=== PATIENT | female | born 1975 | race Hispanic/Latino ===

== ENCOUNTER 2017-01-26 21:39 | Inpatient (IN) | payer OTHER, MEDICAID ==
--- NOTE | 2017-01-26 22:32 | C.PDOC ---
History Of Present Illness Pt developed a wound on her llq abdomen. was seen at [facility] about 2 days ago, but signed ama because she had to take care of her daugther. Was placed bactrim and keflex. Now wound worsened. 2x 25 cm open wound some purulent drainage and streaking noticed Time Seen by Provider: 01/26/17 22:31 Chief Complaint (Nursing): Abnormal Skin Integrity History Per: Patient History/Exam Limitations: no limitations Onset/Duration Of Symptoms: Days (3) Current Symptoms Are (Timing): Worse Location Of Injury: Left: Abdomen Quality Of Symptoms: Painful, Swollen, Draining Severity: Severe Pain Scale Rating Of: 6 Recent travel outside of the [place]: No Additional History Per: Patient Past Medical History Reviewed: Historical Data, Nursing Documentation, Vital Signs Vital Signs: Last Vital Signs Temp 98 F 01/26/17 22:05 Pulse 86 01/26/17 22:05 Resp 20 01/26/17 22:05 BP 153/92 H 01/26/17 22:05 Pulse Ox 96 01/26/17 22:32 - Medical History PMH: Anxiety, Asthma, Bipolar Disorder, Diabetes, HTN Denies: Chronic Kidney Disease - [facility] Procedures IMMOBILIZ/WOUND ATTN NEC (05/30/13) INJECT/INFUSE NEC (05/30/13) Family History: States: No Known Family Hx - Social History Hx Tobacco Use: Yes Hx Alcohol Use: No Hx Substance Use: No - Immunization History Hx Tetanus Toxoid Vaccination: No Hx Influenza Vaccination: No Hx Pneumococcal Vaccination: No Review Of Systems Constitutional: Negative for: Fever, Chills Cardiovascular: Negative for: Chest Pain Respiratory: Negative for: Shortness of Breath Gastrointestinal: Positive for: Abdominal Pain. Negative for: Nausea, Vomiting Musculoskeletal: Negative for: Back Pain Skin: Positive for: Rash, Lesions Neurological: Negative for: Weakness Psych: Negative for: Anxiety Physical Exam - Physical Exam Appears: Non-toxic Skin: Warm, Other (2x2.4 cm open wound, with some purulent material visible, tender, some induration) Chest: Symmetrical Cardiovascular: Rhythm Regular Respiratory: No Rales, No Rhonchi, No Wheezing Gastrointestinal/Abdominal: Soft, Tenderness (left lower quadrant, abscess) Back: Normal Inspection Neurological/Psych: Oriented x3, Normal Speech, Normal Cognition Gait: Steady ED Course And Treatment O2 Sat by Pulse Oximetry: 96 Pulse Ox Interpretation: Normal Progress Note: blood work, iv abx, nss Disposition Discussed With Dr.: Emmanuelle Gibson Comment: accepted the pt onhis service and took over the care at 11:15 PM Doctor Will See Patient In The: Hospital Counseled Patient/Family Regarding: Studies Performed, Diagnosis - Disposition Disposition: HOSPITALIZED Disposition Time: 22:32 Condition: FAIR - Clinical Impression Clinical Impression: Skin lesion, Skin ulcer, Abscess, Cellulitis Decision To Admit - Pt Status Changed To: Hospital Disposition Of: Inpatient - Admit Certification Admit to Inpatient:: After my assessment, the patient will require hospitalization for at least two midnights. This is because of the severity of symptoms shown, intensity of services needed, and/or the medical risk in this patient being treated as an outpatient. - InPatient: Physician Admission Certification: I certify that this patient requires 2 or more midnights of care for the following reason:: After my assessment, the patient will require hospitalization for at least two midnights. This is because of the severity of symptoms shown, intensity of services needed, and/or the medical risk in this patient being treated as an outpatient. - . Bed Request Type: Regular Admitting Physician: Emmanuelle Gibson Patient Diagnosis: Skin lesion, Skin ulcer, Abscess, Cellulitis
[2017-01-26] MEDS ORDERED: Sodium Chloride 0.9% 1,000 ML IV ONE (22:39)
[2017-01-26] MEDS ORDERED: Piperacillin/Tazobact 3.375 GM in Sodium Chloride 100 ML IVPB STA (22:39)
[2017-01-26 22:55] LABS: VENOUS BLOOD GAS BASE EXCESS -1.1 mmol/L (0.0-2.0); VENOUS BLOOD GAS PCO2 38 mmHg (40-60)
[2017-01-26] MEDS ORDERED: Piperacillin/Tazobact 3.375 gm 100 ML IVPB ONE (23:01)
[2017-01-26] MEDS ORDERED: Sodium Chloride 0.9% 2,000 ML IV ONE (23:04)
[2017-01-26 23:08] LABS: BASO # 0.1 K/uL (0.0-0.2); BASO % 0.9 % (0.0-2.0); EOS # 0.3 K/uL (0.0-0.7); HEMATOCRIT 37.7 % (34.0-47.0); LYMPH # 2.5 K/uL (1.0-4.3); LYMPH % 30.5 % (20.0-40.0); MEAN CELL VOLUME 89.6 fL (81.0-99.0); MEAN CORPUSCULAR HEMOGLOBIN 29.8 pg (27.0-31.0); MEAN CORPUSCULAR HGB CONC 33.3 g/dL (33.0-37.0); MONO # 0.6 K/uL (0.0-0.8); MONO % 6.9 % (0.0-10.0); WHITE BLOOD COUNT 8.2 K/uL (4.8-10.8)
[2017-01-26 23:19] LABS: CHLORIDE 101 mmol/L (98-107); POTASSIUM 3.3 mmol/L (3.6-5.2); SODIUM 141 mmol/L (132-148)
[2017-01-26 23:21] LABS: AST/SGOT 17 U/L (14-36); BILIRUBIN,TOTAL 0.3 mg/dL (0.2-1.3); CARBON DIOXIDE 24 mmol/L (22-30); GFR AFRICAN-AMERICAN > 60
[2017-01-26 23:22] LABS: ALB/GLOB RATIO 1.3 (1.0-2.1); ALKALINE PHOSPHATASE 78 U/L (38-126); ALT/SGPT 24 U/L (9-52); BLOOD UREA NITROGEN 11 mg/dL (7-17); GLUCOSE,RANDOM 160 mg/dL (65-105); TOTAL PROTEIN 6.3 g/dL (6.3-8.3)
[2017-01-26 23:23] LABS: CALCIUM 8.3 mg/dl (8.6-10.4)
[2017-01-26] MEDS ORDERED: Potassium Chloride 10 mEq ER Tab PO STA (23:28)
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
[2017-01-26] MEDS ORDERED: Oxycodone/Acetaminophen 5/325 mg Tab PO PRN (23:30)
[2017-01-26] MEDS ORDERED: Piperacill/Tazo 3.375gm in Dex 50 ML IVPB SCH (23:30)
[2017-01-27] MEDS ORDERED: Potassium Chloride 10 mEq ER Tab PO ONE (00:07)
[2017-01-27] MEDS ORDERED: Oxycodone/Acetaminophen 5/325 mg Tab ONE (00:08)
[2017-01-27] MEDS: Vancomycin 1 gm/NS 200 ml 200 ML IVPB SCH ×2 (00:40→13:18)
--- NOTE | 2017-01-27 01:31 | CP.PCM.CON ---
<Chidi Hobbs - Last Filed: 01/27/17 01:53> History of Present Illness - History of Present Illness History of Present Illness: Gen Surg Consult: Dr. Snell 41F w/ PMHx of Anxiety, bipolar disorder, DM, HTN presented to the ED on 01/26 for abdominal abscess. Patient had originally gone to [facility] with same complaint but signed out AMA because she had to take care of her grandson. Patient was prescribed Bactrim and Keflex but she reports the wound character and size did not improve and the pain and erythema worsened and she decided to come to hospital. According to patient about 3 weeks ago her grandson developed an abscess near his buttocks, he was treated and patients states she was told her grandson's abscess was positive for MRSA. She states she did not take proper contact precautions when cleaning her grandchild at the hospital. About 2 weeks later she developed a small bump on her abdomen which she took care of at home by applying warm compresses and draining it. However, 4 days ago she developed yet another small red bump which she decided to drain and the wound proceeded to worsen and become erythematous and painful as the days went by. Currently the wound is draining scant purulent fluid. No abdominal crepitus noted. Patient reports subjective fever/chills, cough. Denies n/v. Reports abdominal pain along abdominal wound. PMHx: as stated above Allergies: NKDA Review of Systems - Review of Systems Review of Systems: 12 pt ROS carried out, unremarkable; except as stated in HPI Past Patient History - Infectious Disease Hx of Infectious Diseases: None - Past Social History Smoking Status: Light Smoker < 10 Cigarettes Daily - CARDIAC Hx Hypertension: Yes - PULMONARY Hx Asthma: Yes - NEUROLOGICAL Hx Neurological Disorder: Yes (brain aneurysm) - HEENT Hx HEENT Problems: No - RENAL Hx Chronic Kidney Disease: No - ENDOCRINE/METABOLIC Hx Endocrine Disorders: No - HEMATOLOGICAL/ONCOLOGICAL Hx Blood Disorders: No - INTEGUMENTARY Hx Dermatological Problems: No - MUSCULOSKELETAL/RHEUMATOLOGICAL Hx Musculoskeletal Disorders: Yes Hx Back Pain: Yes - GASTROINTESTINAL Hx Gastrointestinal Disorders: No - GENITOURINARY/GYNECOLOGICAL Hx Genitourinary Disorders: No - PSYCHIATRIC Hx Anxiety: Yes Hx Bipolar Disorder: Yes Hx Substance Use: No - SURGICAL HISTORY Hx Surgeries: Yes Hx Section: Yes (x1) Hx Eye Surgery: Yes (chipped bones to eye) Other/Comment: laser surgery for ovarian cysts, ectopic - ANESTHESIA Hx Anesthesia: No Hx Anesthesia Reactions: No Meds Allergies/Adverse Reactions: Allergies Allergy/AdvReac Type Severity Reaction Status Date / Time No Known Allergies Allergy Verified 08/25/14 06:43 - Medications Medications: Current Medications Piperacillin Sod/Tazobactam Sod (Zosyn 3.375 Gm Iv Premix) 50 mls @ 100 mls/hr IVPB Q6H [facility] Vancomycin/Sodium Chloride (Vancocin) 200 mls @ 133 mls/hr IVPB Q12H [facility] Stop: 02/01/17 00:01 Sodium Chloride (Sodium Chloride 0.9%) 2,000 mls @ 1,000 mls/hr IV .Q2H [facility] Stop: 01/27/17 04:29 Oxycodone/Acetaminophen (Percocet 5/325 Mg Tab) 1 tab PO Q6H PRN PRN Reason: Pain, moderate (4-7) Stop: 01/29/17 23:31 Last Admin: 01/27/17 00:10 Dose: 1 tab Pantoprazole Sodium (Protonix Ec Tab) 40 mg PO DAILY [facility] Physical Exam - Constitutional Appears: Non-toxic, No Acute Distress - Head Exam Head Exam: NORMOCEPHALIC - Eye Exam Eye Exam: Normal appearance - ENT Exam ENT Exam: Mucous Membranes Moist - Respiratory Exam Respiratory Exam: NORMAL BREATHING PATTERN. absent: Accessory Muscle Use - Cardiovascular Exam Cardiovascular Exam: +S1, +S2 - GI/Abdominal Exam GI & Abdominal Exam: Soft, Tenderness. absent: Firm, Guarding, Rebound, Rigid Additional comments: Abdominal wound measuring approximately 2x3 cm w/ surrounding erythema Tender to light palpation - Extremities Exam Extremities exam: Negative for: calf tenderness - Neurological Exam Neurological exam: Alert, Oriented x3 - Psychiatric Exam Psychiatric exam: Normal Mood - Skin Skin Exam: Erythema, Warm Results - Vital Signs Recent Vital Signs: Last Vital Signs Temp 97.6 F 01/27/17 00:02 Pulse 84 01/27/17 00:02 Resp 20 01/27/17 00:02 BP 153/92 H 01/27/17 00:02 Pulse Ox 98 01/27/17 00:02 - Labs Result Diagrams: 01/26/17 23:05 01/26/17 23:05 Labs: Laboratory Results - last 24 hr 01/26/17 23:05 WBC 8.2 D RBC 4.21 Hgb 12.5 Hct 37.7 MCV 89.6 MCH 29.8 MCHC 33.3 RDW 14.0 Plt Count 266 MPV 10.0 Neut % (Auto) 57.7 Lymph % (Auto) 30.5 [place] % (Auto) 6.9 Eos % (Auto) 4.0 Baso % (Auto) 0.9 Neut # 4.8 Lymph # 2.5 [place] # 0.6 Eos # 0.3 Baso # 0.1 Sodium 141 Potassium 3.3 L Chloride 101 Carbon Dioxide 24 Anion Gap 19 BUN 11 Creatinine 0.9 Est GFR ( Amer) > 60 Est GFR (Non-Af Amer) > 60 Random Glucose 160 H Calcium 8.3 L Total Bilirubin 0.3 AST 17 ALT 24 Alkaline Phosphatase 78 Total Protein 6.3 Albumin 3.6 Globulin 2.7 Albumin/Globulin Ratio 1.3 Serum Ketones Negative Assessment & Plan - Assessment and Plan (Free Text) Assessment: 41F w/ abdominal abscess -NPO -IVF -Abx -Analgesics -F/u wound cultures -F/u CT scan -I&D -DVT/GI ppx -Further recs per Dr. Snell <Winston Snell - Last Filed: 01/29/17 11:13> Meds - Medications Medications: Current Medications Guaifenesin/Codeine Phosphate (Guaifenesin/Codeine) 10 ml PO Q4 PRN PRN Reason: Cough and congestion Last Admin: 01/29/17 06:44 Dose: 10 ml Piperacillin Sod/Tazobactam Sod (Zosyn 3.375 Gm Iv Premix) 50 mls @ 100 mls/hr IVPB Q6H [facility] Last Admin: 01/29/17 05:57 Dose: 100 mls/hr Vancomycin/Sodium Chloride (Vancocin) 200 mls @ 133 mls/hr IVPB Q12H [facility] Stop: 02/01/17 00:01 Last Admin: 01/29/17 00:42 Dose: 133 mls/hr Sodium Chloride (Sodium Chloride 0.9%) 1,000 mls @ 125 mls/hr IV .Q8H [facility] Last Admin: 01/29/17 11:09 Dose: Not Given Oxycodone HCl (Oxycontin Extended Release Tab) 30 mg PO Q12 [facility] Stop: 02/01/17 10:01 Last Admin: 01/29/17 11:04 Dose: 30 mg Pantoprazole Sodium (Protonix Ec Tab) 40 mg PO DAILY [facility] Last Admin: 01/29/17 11:04 Dose: 40 mg Results - Vital Signs Recent Vital Signs: Last Vital Signs Temp 98.3 F 01/29/17 08:00 Pulse 74 01/29/17 08:00 Resp 20 01/29/17 08:00 BP 154/91 H 01/29/17 08:00 Pulse Ox 95 01/29/17 08:00 - Labs Result Diagrams: 01/28/17 07:30 01/28/17 07:30 Attending/Attestation - Attestation I have personally seen and examined this patient.: Yes I have fully participated in the care of the patient.: Yes I have reviewed all pertinent clinical information: Yes Notes (Text): 01/29/17 11:12 Pt was seen and examined at bedside on 01/27/17 Agree with above note and assessment. Pt with Abdominal wall abscess with Necrosis of wound Possible MRSA Pt would need Incision and Drainage of abscess and Debridement. Consent Plan d.w pt in detail Risk and benefit explained in detail.
[2017-01-27] MEDS: Sodium Chloride 0.9% 1,000 ML IV SCH ×3 (02:27→21:22)
[2017-01-27] MEDS ORDERED: Sodium Chloride 0.9% 2,000 ML IV ONE (02:30)
[2017-01-27] MEDS: Piperacill/Tazo 3.375gm in Dex 50 ML IVPB SCH ×4 (05:26→23:25)
[2017-01-27 07:33] LABS: RBC URINE 1 /hpf (0-3); URINE BACTERIA RARE (<OCC); URINE BILIRUBIN NEGATIVE (NEGATIVE); URINE BLOOD NEGATIVE (NEGATIVE); URINE COLOR Yellow (YELLOW); URINE GLUCOSE (UA) NORMAL (Normal); URINE KETONE NEGATIVE (NEGATIVE); URINE LEUKOCYTE ESTERASE NEG Leu/uL (Negative); URINE PROTEIN NEGATIVE (NEGATIVE); WBC URINE 3 /hpf (0-5)
[2017-01-27] MEDS: Pantoprazole 40 mg EC Tab PO SCH (09:34)
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
[2017-01-27] MEDS ORDERED: Potassium Chloride 20 mEq 100 ML IVPB ONE (11:45)
[2017-01-27] MEDS ORDERED: Iodixanol 320 MG/ML 100 ML BOTTLE IV ONE (11:58)
--- NOTE | 2017-01-27 13:17 | CT ---
PROCEDURE: CT Abdomen and Pelvis with contrast HISTORY: Abdominal abscess COMPARISON: None. TECHNIQUE: Axial and reformatted coronal and sagittal CT of the abdomen and pelvis were obtained after IV contrast administration. No oral contrast was given. This CT exam was performed using one or more of the following dose reduction techniques: Automated exposure control, adjustment of the mA and/or kV according to patient size, and/or use of iterative reconstruction technique. Contrast dose: 100 mL of Visipaque 320. Radiation dose: Total exam DLP = 820.18 mGy-cm. FINDINGS: LOWER THORAX: Bibasilar atelectasis are seen. No evidence of pleural effusion. The heart is normal in size. LIVER: Unremarkable. No gross lesion or ductal dilatation. GALLBLADDER AND BILE DUCTS: The gallbladder is contracted. The biliary tree is not dilated. PANCREAS: Unremarkable. No gross lesion or ductal dilatation. SPLEEN: Unremarkable. ADRENALS: Unremarkable. No mass. KIDNEYS AND URETERS: Unremarkable. No hydronephrosis. No solid mass. There is low-attenuation cystic lesion at the upper pole of the right kidney measures 2.8 centimeter. VASCULATURE: Unremarkable. No aortic aneurysm. BOWEL: Unremarkable. No obstruction. No gross mural thickening. APPENDIX: Normal appendix. PERITONEUM: Unremarkable. No free fluid. No free air. LYMPH NODES: Unremarkable. No enlarged lymph nodes. BLADDER: Unremarkable. REPRODUCTIVE: The uterus is heterogeneous mildly enlarged. The adnexa are prominent in size especially on the left. BONES: No acute fracture. OTHER FINDINGS: There is a skin thickening and mild subcutaneous stranding seen at the left anterior abdominal wall at the level of the umbilicus. No evidence of discrete fluid collection. IMPRESSION: No evidence of abscess formation in the abdomen and pelvis. Skin thickening and subcutaneous stranding seen at the left anterior abdominal wall at the level of the umbilicus suggestive of cellulitis. No evidence of abscess formation. Mildly enlarged heterogeneous uterus and adnexa. If clinically warranted further assessment by ultrasound may be obtained.
[2017-01-27] MEDS ORDERED: Lidocaine 1%/Epinephrine 1:100000 30 ml vial IJ STA (13:59)
[2017-01-27] MEDS ORDERED: Potassium Chloride 10 mEq ER Tab PO STA (19:04)
[2017-01-27] MEDS: guaiFENesin-Codeine 100-10mg/5ml Syrup (10ml) UD PO PRN (21:20)
[2017-01-28] MEDS: Sodium Chloride 0.9% 1,000 ML IV SCH ×4 (02:00→22:43)
[2017-01-28] MEDS: Piperacill/Tazo 3.375gm in Dex 50 ML IVPB SCH ×3 (04:44→17:39)
[2017-01-28 07:48] LABS: BASO # 0.1 K/uL (0.0-0.2); EOS # 0.2 K/uL (0.0-0.7); EOS % 2.9 % (0.0-4.0); HEMATOCRIT 37.5 % (34.0-47.0); LYMPH # 2.2 K/uL (1.0-4.3); LYMPH % 27.7 % (20.0-40.0); MEAN CELL VOLUME 91.1 fL (81.0-99.0); MEAN CORPUSCULAR HEMOGLOBIN 29.8 pg (27.0-31.0); MEAN CORPUSCULAR HGB CONC 32.7 g/dL (33.0-37.0); MEAN PLATELET VOLUME 9.6 fL (7.2-11.7); MONO # 0.6 K/uL (0.0-0.8); MONO % 7.2 % (0.0-10.0); NRBC % 0.1 % (0.0-2.0); RED CELL DISTRIBUTION WIDTH 13.7 % (11.5-14.5); WHITE BLOOD COUNT 7.9 K/uL (4.8-10.8)
[2017-01-28 07:57] LABS: CHLORIDE 101 mmol/L (98-107); POTASSIUM 4.3 mmol/L (3.6-5.2); SODIUM 136 mmol/L (132-148)
[2017-01-28 08:00] LABS: BLOOD UREA NITROGEN 5 mg/dL (7-17); CARBON DIOXIDE 26 mmol/L (22-30); GFR AFRICAN-AMERICAN > 60; GLUCOSE,RANDOM 101 mg/dL (65-105)
[2017-01-28] MEDS ORDERED: Pneumococcal 23-Valent Vaccine IM ONE (10:00)
[2017-01-28] MEDS: Pantoprazole 40 mg EC Tab PO SCH (10:38)
[2017-01-28] MEDS ORDERED: HYDROmorphone 0.5 mg/0.5 ml ISec IVP PRN (11:16)
[2017-01-28] MEDS ORDERED: Albuterol HFA 90 mcg/actuation (8 g) ONE (11:21)
[2017-01-28] MEDS ORDERED: Propofol 10 mg/ml Inj (20 ML) ONE (11:29)
[2017-01-28] MEDS ORDERED: Midazolam 2 MG/2 ML VIAL ONE (11:29)
[2017-01-28] MEDS ORDERED: Lidocaine Hydrochloride 5 ML INJ ONE (11:32)
[2017-01-28] MEDS ORDERED: Bupivacaine/Epi 0.25%-1:200,000 10 ml PF inj IJ ONE (11:33)
[2017-01-28] MEDS ORDERED: Lidocaine 1% Inj (20ml) ONE (11:34)
[2017-01-28] MEDS: Vancomycin 1 gm/NS 200 ml 200 ML IVPB SCH ×2 (11:40)
--- NOTE | 2017-01-28 12:02 | PCM.SURG1 ---
Surgeon's Initial Post Op Note - Surgeon's Notes Surgeon: Dr. Snell Yarn Tester: Dr. Hobbs PGY-1 Type of Anesthesia: IV Sedation Pre-Operative Diagnosis: abdominal abscess Operative Findings: see operative report Post-Operative Diagnosis: see operative report Operation Performed: debridement of abdominal abscess tissue. incision and drainage of abdominal abscess. placement of wound vac Specimen/Specimens Removed: debrided abscess wall tissue Estimated Blood Loss: EBL {In ML}: 10 Blood Products Given: N/A Drains Used: No Drains Post-Op Condition: Good Date of Surgery/Procedure: 01/28/17 Time of Surgery/Procedure: 11:00
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
[2017-01-28 17:22] VITALS: RESP 20
[2017-01-28] MEDS: guaiFENesin-Codeine 100-10mg/5ml Syrup (10ml) UD PO PRN (19:00)
[2017-01-29] MEDS: Piperacill/Tazo 3.375gm in Dex 50 ML IVPB SCH ×4 (00:04→18:00)
[2017-01-29] MEDS: Vancomycin 1 gm/NS 200 ml 200 ML IVPB SCH ×2 (00:42→12:26)
[2017-01-29] MEDS: Sodium Chloride 0.9% 1,000 ML IV SCH ×3 (02:11→17:45)
[2017-01-29] MEDS: guaiFENesin-Codeine 100-10mg/5ml Syrup (10ml) UD PO PRN (06:44)
--- NOTE | 2017-01-29 08:39 | CP.PCM.PN ---
Subjective - Date & Time of Evaluation Date of Evaluation: 01/29/17 Time of Evaluation: 07:10 - Subjective Subjective: Gen surgery: Dr. Snell Pt S&E. Scant output in wound vac. Reports pain being well managed w/ pain meds. Tolerating diet. Objective - Vital Signs/Intake and Output Vital Signs (last 24 hours): Temp Pulse Resp BP Pulse Ox 97.9 F 85 20 146/89 97 01/29/17 00:00 01/29/17 00:00 01/29/17 00:00 01/29/17 00:00 01/29/17 00:00 Intake and Output: 01/29/17 01/29/17 06:59 18:59 Intake Total 1240 Output Total 0 Balance 1240 - Medications Medications: Current Medications Guaifenesin/Codeine Phosphate (Guaifenesin/Codeine) 10 ml PO Q4 PRN PRN Reason: Cough and congestion Last Admin: 01/29/17 06:44 Dose: 10 ml Piperacillin Sod/Tazobactam Sod (Zosyn 3.375 Gm Iv Premix) 50 mls @ 100 mls/hr IVPB Q6H [facility] Last Admin: 01/29/17 05:57 Dose: 100 mls/hr Vancomycin/Sodium Chloride (Vancocin) 200 mls @ 133 mls/hr IVPB Q12H [facility] Stop: 02/01/17 00:01 Last Admin: 01/29/17 00:42 Dose: 133 mls/hr Sodium Chloride (Sodium Chloride 0.9%) 1,000 mls @ 125 mls/hr IV .Q8H [facility] Last Admin: 01/29/17 02:11 Dose: Not Given Morphine Sulfate (Morphine) 2 mg IVP Q4 PRN PRN Reason: Pain, severe (8-10) Last Admin: 01/29/17 06:44 Dose: 2 mg Pantoprazole Sodium (Protonix Ec Tab) 40 mg PO DAILY [facility] Last Admin: 01/28/17 10:38 Dose: Not Given - Labs Labs: 01/28/17 07:30 01/28/17 07:30 PT 11.5 SECONDS (9.7-12.2) 01/27/17 08:10 INR 1.0 01/27/17 08:10 APTT 33 SECONDS (21-34) 01/27/17 08:10 - Constitutional Appears: No Acute Distress - Eye Exam Eye Exam: Normal appearance - ENT Exam ENT Exam: Mucous Membranes Moist - Respiratory Exam Additional comments: +cough - Cardiovascular Exam Cardiovascular Exam: +S1, +S2 - GI/Abdominal Exam GI & Abdominal Exam: Soft, Tenderness Additional comments: tenderness along wound vac region - Neurological Exam Neurological Exam: Alert, Awake, Oriented x3 - Skin Skin Exam: Dry, Erythema, Warm Assessment and Plan - Assessment and Plan (Free Text) Assessment: 41F w/ abdominal abscess s/p I&D POD#1 -Will remove wound vac Monday -Pack wound and track progress -Abx -Analgesics -DVT/GI ppx -D/w Dr. Snell
[2017-01-29] MEDS: oxyCODONE 10 mg ER Tab (oxyCONTIN) PO SCH ×2 (11:04→22:08)
[2017-01-29] MEDS: Pantoprazole 40 mg EC Tab PO SCH (11:04)
--- NOTE | 2017-01-29 15:51 | OP ---
PROCEDURE DATE: 01/28/2017 POSTOPERATIVE DIAGNOSES: 1. Abdominal wall abscess and cellulitis. 2. Wound necrosis. POSTOPERATIVE DIAGNOSES: 1. Abdominal wall abscess and cellulitis. 2. Wound necrosis. PROCEDURES DONE: 1. Incision and drainage of abdominal wall abscess. 2. Abdominal wall debridement, approximately 4 cm x 4 cm size. 3. Negative pressure wound VAC therapy, 4 cm x 4 cm size. SURGEON: Dr. Winston Snell SHIP'S CAPTAIN: Chidi Hobbs, PGY-I resident ANESTHESIA: Local anesthesia plus sedation. ESTIMATED BLOOD LOSS: Around 10 mL. DRAINS: None. PATHOLOGY: 1. The pus was sent for culture and sensitivity. 2. Debrided tissue was sent for the pathology. COMPLICATIONS: None. INTRAOPERATIVE FINDINGS: The patient had approximately 4 cm x 4 cm circular necrotic wound with abscess. INTRAOPERATIVE STEPS: This 41-year-old female was diagnosed with abdominal wall abscess and cellulitis as well as wound necrosis. The patient was consented for incision and drainage and debridement of the abdominal wall, brought to the OR, placed supine on operating table. After induction of sedation, the abdomen was prepped and draped and local anesthesia was injected and the circular incision was made to debride the necrotic wall as well as the necrotic tissue and abscess was drained. Pus was sent for culture and sensitivity. Debrided tissue was also sent for the pathology. The wound was irrigated. Dry sterile dressing was applied. The negative pressure wound VAC therapy was applied and connected to the suction. There was no apparent complication. The patient tolerated the procedure well. Count of instruments and gauze was correct. Winston Snell MD cc: [id number] TT: 01/29/2017 15:50:05 en MTDD
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
[2017-01-29 17:57] VITALS: BP 128/66; O2SAT 97
[2017-01-29] MEDS ORDERED: Amoxicillin-Clav 875-125 mg Tab PO SCH (19:30)
[2017-01-30 01:41] VITALS: PULSE 105; TEMP 98.4
== END 2017-01-30 03:00 | disposition left against medical advice (07) | DRG 564 ==
LOC: C.ER 21:39 → C.9E 23:03 → C.3T 23:26
PROVIDERS: ADMIT Internal Medicine Nephrology; ATTEND Internal Medicine Nephrology
PROC: 0HB7XZZ Excision of Abdomen Skin, External Approach (ICD-10-PCS; principal; 2017-01-30)
PROC: 0H97XZZ Drainage of Abdomen Skin, External Approach (ICD-10-PCS; 2017-01-30)
DX: L02.211 Cutaneous abscess of abdominal wall (principal); J18.9 Pneumonia, unspecified organism; I96 Gangrene, not elsewhere classified; L03.311 Cellulitis of abdominal wall; F31.9 Bipolar disorder, unspecified; E11.9 Type 2 diabetes mellitus without complications; I10 Essential (primary) hypertension; J06.9 Acute upper respiratory infection, unspecified; J45.909 Unspecified asthma, uncomplicated; J40 Bronchitis, not specified as acute or chronic; Z76.5 Malingerer [conscious simulation]; F17.210 Nicotine dependence, cigarettes, uncomplicated

== ENCOUNTER 2017-01-30 03:14 | Emergency (ER) | payer OTHER ==
[2017-01-30 03:55] VITALS: BP 146/75; PULSE 86; RESP 20; TEMP 98.5; O2SAT 97
--- NOTE | 2017-01-30 04:13 | C.PDOC ---
History Of Present Illness Patient is a 41 year old female who eloped from the hospital yesterday post surgery. Patient still has wound vac place in her. Refuses to be admitted. Denies nausea, vomiting, or diarrhea. Chief Complaint (Nursing): Medical Clearance History Per: Patient History/Exam Limitations: no limitations Onset/Duration Of Symptoms: Hrs Current Symptoms Are (Timing): Still Present Reports Recently: Hospitalized (Yesterday) Past Medical History Reviewed: Historical Data, Nursing Documentation, Vital Signs Vital Signs: Last Vital Signs Temp 98.5 F 01/30/17 03:43 Pulse 86 01/30/17 03:43 Resp 20 01/30/17 03:43 BP 146/75 01/30/17 03:43 Pulse Ox 97 01/30/17 04:25 - Medical History PMH: Anxiety, Asthma, Bipolar Disorder, Diabetes, HTN - [facility] Procedures IMMOBILIZ/WOUND ATTN NEC (05/30/13) INJECT/INFUSE NEC (05/30/13) Family History: States: Unknown Family Hx - Social History Hx Tobacco Use: Yes Hx Alcohol Use: No Hx Substance Use: Yes - Immunization History Hx Tetanus Toxoid Vaccination: No Hx Influenza Vaccination: No Hx Pneumococcal Vaccination: No Review Of Systems Constitutional: Negative for: Fever, Chills Cardiovascular: Negative for: Palpitations Respiratory: Negative for: Cough, Shortness of Breath Gastrointestinal: Negative for: Nausea, Vomiting, Diarrhea Physical Exam - Physical Exam Appears: Well, Non-toxic Skin: Normal Color, Warm, Dry Head: Atraumatic, Normacephalic Chest: Symmetrical ED Course And Treatment O2 Sat by Pulse Oximetry: 97 (Room air) Pulse Ox Interpretation: Normal Progress Note: residential therapist called to remove wound vac. Disposition Counseled Patient/Family Regarding: Diagnosis - Disposition Referrals: [facility] [Outside] Disposition: AGAINST MEDICAL ADVICE Disposition Time: 04:27 Condition: STABLE - Clinical Impression Clinical Impression: Abscess, Abscess of abdominal wall
== END 2017-01-30 04:48 | disposition left against medical advice (07) ==
LOC: SUPCPDRO 03:14 → C.ER 03:14
DX: L02.211 Cutaneous abscess of abdominal wall (principal)

== ENCOUNTER 2017-03-09 23:13 | Emergency (ER) | payer MEDICAID, OTHER ==
[2017-03-09 23:29] VITALS: RESP 14; O2SAT 97
--- NOTE | 2017-03-10 00:18 | C.PDOC ---
History Of Present Illness Patient presents to the ER with a complaint of back pain. Patient states she ran out of her pain medications. Denies trauma, weakness, or numbness. Time Seen by Provider: 03/10/17 00:18 Chief Complaint (Nursing): Back Pain History Per: Patient History/Exam Limitations: no limitations Onset/Duration Of Symptoms: Hrs Current Symptoms Are (Timing): Still Present Quality Of Discomfort: Dull, Aching Severity: Moderate Pain Scale Rating Of: 4 Previous Symptoms: Back Pain Associated Symptoms: denies: New Weakness, New Numbness Exacerbating Factor(s): Nothing Recent travel outside of the [place]: No Past Medical History Vital Signs: Last Vital Signs Temp 98.1 F 03/09/17 23:27 Pulse 74 03/09/17 23:27 Resp 14 03/09/17 23:27 BP 129/76 03/09/17 23:27 Pulse Ox 97 03/10/17 03:42 - Medical History PMH: Anxiety, Asthma, Bipolar Disorder, Diabetes, HTN - [facility] Procedures DRAINAGE OF ABDOMEN SKIN, EXTERNAL APPROACH (01/26/17) EXCISION OF ABDOMEN SKIN, EXTERNAL APPROACH (01/26/17) IMMOBILIZ/WOUND ATTN NEC (05/30/13) INJECT/INFUSE NEC (05/30/13) Family History: States: No Known Family Hx - Social History Hx Tobacco Use: Yes Hx Alcohol Use: No Hx Substance Use: Yes - Immunization History Hx Tetanus Toxoid Vaccination: No Hx Influenza Vaccination: No Hx Pneumococcal Vaccination: No Review Of Systems Musculoskeletal: Positive for: Back Pain Neurological: Negative for: Weakness, Numbness Physical Exam - Physical Exam Appears: Well, Non-toxic Skin: Warm, Dry Oral Mucosa: Moist Chest: Symmetrical, No Tenderness Cardiovascular: Rhythm Regular, No Murmur Respiratory: No Rales, No Rhonchi, No Wheezing Gastrointestinal/Abdominal: Soft, No Tenderness, Other (LLQ healing wound that has much improved since last visit, no exudates. ) Back: Paraspinal Tenderness (Thoracolumbar) Neurological/Psych: Oriented x3 ED Course And Treatment - Laboratory Results Result Diagrams: 03/10/17 01:05 03/10/17 01:05 O2 Sat by Pulse Oximetry: 97 (Room air) Pulse Ox Interpretation: Normal Progress Note: Urinalysis ordered. Toradol IVP and IV fluids administered. 3: 40 sleeping. arousable Reevaluation Time: 05:26 Reassessment Condition: Improved Disposition Counseled Patient/Family Regarding: Studies Performed, Diagnosis, Need For Followup, Rx Given - Disposition Referrals: Shaik Jorgensen MD [Staff Provider] - Disposition: HOME/ ROUTINE Disposition Time: 00:18 Condition: FAIR Prescriptions: traMADol [Ultram] 50 mg PO TID PRN #15 tab PRN Reason: Pain, Severe (8-10) Instructions: Chronic Back Pain (ED) - Clinical Impression Clinical Impression: Low back pain - Scribe Statement The provider has reviewed the documentation as recorded by the Scribe Rudy Rudd All medical record entries made by the Scribe were at my direction and personally dictated by me. I have reviewed the chart and agree that the record accurately reflects my personal performance of the history, physical exam, medical decision making, and the department course for this patient. I have also personally directed, reviewed, and agree with the discharge instructions and disposition.
[2017-03-10] MEDS ORDERED: Sodium Chloride 0.9% 1,000 ML IV ONE ×2 (00:28→03:42)
[2017-03-10] MEDS ORDERED: Sodium Chloride 0.9% 1,000 ML ONE (00:42)
[2017-03-10 01:23] LABS: CHLORIDE 102 mmol/L (98-107)
[2017-03-10 01:24] LABS: POTASSIUM 3.3 mmol/L (3.6-5.2); SODIUM 139 mmol/L (132-148)
[2017-03-10 01:26] LABS: ALB/GLOB RATIO 1.4 (1.0-2.1); AST/SGOT 19 U/L (14-36); BILIRUBIN,TOTAL 0.6 mg/dL (0.2-1.3); CARBON DIOXIDE 28 mmol/L (22-30); GFR AFRICAN-AMERICAN > 60; TOTAL PROTEIN 6.7 g/dL (6.3-8.3)
[2017-03-10 01:27] LABS: ALKALINE PHOSPHATASE 75 U/L (38-126); ALT/SGPT 25 U/L (9-52); BLOOD UREA NITROGEN 15 mg/dL (7-17); GLUCOSE,RANDOM 146 mg/dL (65-105)
[2017-03-10 02:33] LABS: BASO # 0.1 K/uL (0.0-0.2); BASO % 0.8 % (0.0-2.0); EOS # 0.2 K/uL (0.0-0.7); EOS % 2.6 % (0.0-4.0); HEMATOCRIT 40.5 % (34.0-47.0); LYMPH # 3.2 K/uL (1.0-4.3); LYMPH % 37.5 % (20.0-40.0); MEAN CELL VOLUME 89.6 fL (81.0-99.0); MEAN CORPUSCULAR HEMOGLOBIN 29.9 pg (27.0-31.0); MEAN CORPUSCULAR HGB CONC 33.4 g/dL (33.0-37.0); MEAN PLATELET VOLUME 10.9 fL (7.2-11.7); MONO # 0.6 K/uL (0.0-0.8); MONO % 6.6 % (0.0-10.0); WHITE BLOOD COUNT 8.7 K/uL (4.8-10.8)
[2017-03-10 06:10] VITALS: BP 110/70; PULSE 70; TEMP 97.8
--- NOTE | 2017-04-15 10:48 | CARD ---
APPROVED REPORT EKG Measurement Heart [id number] <Conclusion> Normal sinus rhythm Possible Left atrial enlargement Prolonged QT Abnormal ECG
== END 2017-03-10 06:09 | disposition home or self-care (01) ==
LOC: C.ER 23:13
DX: M54.5 Low back pain (principal)
CPT/HCPCS: 80053; 85025; 96361; 96374; 99283; J1885; J7040

== ENCOUNTER 2018-04-20 04:39 | Emergency (ER) | payer MEDICAID, OTHER ==
[2018-04-20 04:40] VITALS: BMI 31.5
[2018-04-20 05:14] VITALS: TEMP 97.5; O2SAT 98
--- NOTE | 2018-04-20 05:36 | C.PDOC ---
History Of Present Illness 43 year old female with a Hx of chronic back pain presents to the ER with a complaint of back and body pain after she fell 4 days ago. Prior records reviewed, patient found to have a Hx of similar presentations and substance abuse. Denies weakness, numbness, dysuria, hematuria, or incontinence. Time Seen by Provider: 04/20/18 05:15 Chief Complaint (Nursing): Back Pain History Per: Patient History/Exam Limitations: no limitations Onset/Duration Of Symptoms: Days Current Symptoms Are (Timing): Still Present Quality Of Discomfort: Unable To Describe Previous Symptoms: Back Pain, Chronic Pain Associated Symptoms: None Exacerbating Factor(s): Nothing Recent travel outside of the [place]: No Past Medical History Reviewed: Historical Data, Nursing Documentation, Vital Signs Vital Signs: Last Vital Signs Temp 97.5 F L 04/20/18 05:00 Pulse 81 04/20/18 05:53 Resp 20 04/20/18 05:53 BP 146/70 04/20/18 05:53 Pulse Ox 98 04/20/18 05:53 - Medical History PMH: Anxiety, Asthma, Back Problems, Bipolar Disorder, Diabetes, HTN Surgical History: No Surg Hx - [facility] Procedures DRAINAGE OF ABDOMEN SKIN, EXTERNAL APPROACH (01/26/17) EXCISION OF ABDOMEN SKIN, EXTERNAL APPROACH (01/26/17) IMMOBILIZ/WOUND ATTN NEC (05/30/13) INJECT/INFUSE NEC (05/30/13) Family History: States: Unknown Family Hx - Social History Hx Tobacco Use: Yes Hx Alcohol Use: No Hx Substance Use: No - Immunization History Hx Tetanus Toxoid Vaccination: No Hx Influenza Vaccination: No Hx Pneumococcal Vaccination: No Review Of Systems Genitourinary: Negative for: Dysuria, Incontinence, Hematuria Musculoskeletal: Positive for: Back Pain Neurological: Negative for: Weakness, Numbness Physical Exam - Physical Exam Appears: Non-toxic, No Acute Distress, Unkempt, Other (Sleeping) Skin: Warm, Dry, No Ecchymosis Head: Atraumatic, Normacephalic Eye(s): bilateral: Normal Inspection Back: Normal Inspection, No CVA Tenderness, No Vertebral Tenderness, No Paraspinal Tenderness Extremity: Normal ROM (x4), No Tenderness, No Deformity, No Swelling Neurological/Psych: Oriented x3, Normal Speech, Normal Motor, Normal Sensation Gait: Steady ED Course And Treatment O2 Sat by Pulse Oximetry: 98 (Room air) Pulse Ox Interpretation: Normal Medical Decision Making Medical Decision Making: Toradol administered. Patient is resting comfortably in the ER in no acute distress, she is able to ambulate without any pain or difficulty, will discharge home with instructions to follow up with PMD. Disposition Counseled Patient/Family Regarding: Need For Followup - Disposition Referrals: [facility] [Outside] [facility] [Outside] [facility] [employer] [facility] [Outside] Disposition: HOME/ ROUTINE Disposition Time: 05:50 Condition: STABLE Additional Instructions: Apply heat to area for 15-20 minutes at a time 2-3 times per day Take Tylenol or Motrin for pain Instructions: Low Back Pain (DC) - POA Present On Arrival: None - Clinical Impression Clinical Impression: Contusion of back - PA / [employer]IVER / Resident Statement MD/DO has reviewed & agrees with the documentation as recorded. - Scribe Statement The provider has reviewed the documentation as recorded by the Scribe Rudy Rudd All medical record entries made by the Scribe were at my direction and personally dictated by me. I have reviewed the chart and agree that the record accurately reflects my personal performance of the history, physical exam, medical decision making, and the department course for this patient. I have also personally directed, reviewed, and agree with the discharge instructions and disposition.
[2018-04-20 05:54] VITALS: BP 146/70; PULSE 81; RESP 20
== END 2018-04-20 05:54 | disposition home or self-care (01) ==
LOC: C.ER 04:39
DX: S30.0XXA Contusion of lower back and pelvis, initial encounter (principal); W19.XXXA Unspecified fall, initial encounter
CPT/HCPCS: 82948; 96372; 99284; J1885

== ENCOUNTER 2018-11-25 14:12 | Inpatient (IN) | payer MEDICAID, OTHER ==
[2018-11-25 14:13] VITALS: BMI 30.6
--- NOTE | 2018-11-25 15:41 | C.PDOC ---
History Of Present Illness 43 years old female with PMHx of HTN presents to ED for detox from multiple substances (alcohol, PCP, cocaine). Patient states she is non-compliant with her medications. Patient denies any psychiatric or medical complaints at this time. Time Seen by Provider: 11/25/18 15:08 Chief Complaint (Nursing): Substance Abuse History Per: Patient History/Exam Limitations: no limitations Onset/Duration Of Symptoms: Hrs Current Symptoms Are (Timing): Still Present Suicide/Self Injury Attempted (Context): None Modifying Factor(s): Alcohol, Cocaine, Other (PCP) Associated Symptoms: denies: Suicidal Thoughts, Suicidal Plan Involuntary Hold By: None Recent travel outside of the [place]: No Past Medical History Reviewed: Historical Data, Nursing Documentation, Vital Signs Vital Signs: Last Vital Signs Temp 98.4 F 11/25/18 14:41 Pulse 84 11/25/18 14:41 Resp 18 11/25/18 14:41 BP 168/95 H 11/25/18 14:41 Pulse Ox 99 11/25/18 14:41 - Medical History PMH: Anxiety, Asthma, Back Problems, Bipolar Disorder, Diabetes, HTN Surgical History: - [facility] Procedures DRAINAGE OF ABDOMEN SKIN, EXTERNAL APPROACH (01/26/17) EXCISION OF ABDOMEN SKIN, EXTERNAL APPROACH (01/26/17) IMMOBILIZ/WOUND ATTN NEC (05/30/13) INJECT/INFUSE NEC (05/30/13) Family History: States: Unknown Family Hx - Social History Hx Tobacco Use: Yes Hx Alcohol Use: No Hx Substance Use: Yes (last use last night) - Immunization History Hx Tetanus Toxoid Vaccination: Yes Hx Influenza Vaccination: No Hx Pneumococcal Vaccination: No Review Of Systems Constitutional: Negative for: Fever, Chills Cardiovascular: Negative for: Chest Pain Gastrointestinal: Negative for: Nausea, Vomiting, Diarrhea Skin: Negative for: Rash Neurological: Negative for: Weakness, Numbness Physical Exam - Physical Exam Appears: Non-toxic, No Acute Distress Skin: Normal Color, Warm, Dry, No Rash Head: Atraumatic, Normacephalic Eye(s): bilateral: Normal Inspection, PERRL, EOMI Oral Mucosa: Moist Neck: Normal ROM, Supple Chest: Symmetrical, No Tenderness Cardiovascular: Rhythm Regular, No Murmur Respiratory: Normal Breath Sounds, No Rales, No Rhonchi, No Wheezing Gastrointestinal/Abdominal: Bowel Sounds (Active ), Soft, No Tenderness, No Distention Extremity: Normal ROM Extremity: Bilateral: Atraumatic, Normal Color And Temperature, Normal ROM Pulses: Left Radial: Normal, Right Radial: Normal Neurological/Psych: Oriented x3, Normal Speech, Normal Cognition Gait: Steady ED Course And Treatment - Laboratory Results Result Diagrams: 11/25/18 15:41 11/25/18 15:41 O2 Sat by Pulse Oximetry: 99 (RA) Pulse Ox Interpretation: Normal Medical Decision Making Medical Decision Making: Plan: * Blood work * Urinalysis * crisis * * * [id number] pt is medically cleared for detox admission. Recommend in patient medical consult for elevated blood glucose 128 and for eval for htn medications. Disposition Discussed With : Vikki Ortega Doctor Will See Patient In The: Hospital - Disposition Disposition: HOSPITALIZED Disposition Time: 17:31 Condition: GOOD - Clinical Impression Clinical Impression: Alcohol use disorder, severe, dependence, Polysubstance (excluding opioids) dependence - PA / TAPING MACHINE OPERATOR / Resident Statement MD/DO has reviewed & agrees with the documentation as recorded. - Scribe Statement The provider has reviewed the documentation as recorded by the Scribe Alexis Adams All medical record entries made by the Dawson were at my direction and personally dictated by me. I have reviewed the chart and agree that the record accurately reflects my personal performance of the history, physical exam, medical decision making, and the department course for this patient. I have also personally directed, reviewed, and agree with the discharge instructions and disposition. Decision To Admit - Pt Status Changed To: Hospital Disposition Of: Inpatient - Admit Certification Admit to Inpatient:: After my assessment, the patient will require hospitalization for at least two midnights. This is because of the severity of symptoms shown, intensity of services needed, and/or the medical risk in this patient being treated as an outpatient. - InPatient: Physician Admission Certification: I certify that this patient requires 2 or more midnights of care for the following reason:: for detoxiification from multiple substances - . Bed Request Type: Detox Patient Diagnosis: Alcohol use disorder, severe, dependence, Polysubstance (excluding opioids) dependence
[2018-11-25 15:46] LABS: BASO # 0.1 K/uL (0.0-0.2); BASO % 0.7 % (0.0-2.0); EOS # 0.2 K/uL (0.0-0.7); EOS % 2.8 % (0.0-4.0); HEMOGLOBIN 13.6 g/dL (11.0-16.0); LYMPH # 3.1 K/uL (1.0-4.3); LYMPH % 34.8 % (20.0-40.0); MEAN CELL VOLUME 92.5 fL (81.0-99.0); MEAN CORPUSCULAR HGB CONC 32.4 g/dL (33.0-37.0); MEAN PLATELET VOLUME 9.8 fL (7.2-11.7); MONO # 0.6 K/uL (0.0-0.8); MONO % 6.8 % (0.0-10.0); NEUT # 4.9 K/uL (1.8-7.0); NEUT % 54.9 % (50.0-75.0); NRBC % 0.1 % (0.0-2.0); RBC 4.54 Mil/uL (3.80-5.20); RED CELL DISTRIBUTION WIDTH 13.3 % (11.5-14.5); WHITE BLOOD COUNT 8.8 K/uL (4.8-10.8)
[2018-11-25 15:54] LABS: SQUAMOUS EPITHIAL 29 /hpf (0-5); URINE BILIRUBIN NEGATIVE (NEGATIVE); URINE BLOOD NEGATIVE (NEGATIVE); URINE CLARITY Hazy (Clear); URINE COLOR Yellow (YELLOW); URINE GLUCOSE (UA) NORMAL (Normal); URINE LEUKOCYTE ESTERASE NEG Leu/uL (Negative); URINE PROTEIN NEGATIVE (NEGATIVE)
[2018-11-25 15:56] LABS: HCG,QUALITATIVE URINE NEGATIVE (NEGATIVE)
[2018-11-25 16:04] LABS: BARBITURATES, UR NEGATIVE (NEGATIVE); OPIATES, UR NEGATIVE (NEGATIVE)
[2018-11-25 16:05] LABS: ALB/GLOB RATIO 1.6 (1.0-2.1); ALBUMIN 4.3 g/dL (3.5-5.0); ALT/SGPT 33 U/L (9-52); AST/SGOT 29 U/L (14-36); BLOOD UREA NITROGEN 8 mg/dL (7-17); CALCIUM 8.9 mg/dl (8.6-10.4); GFR NON-AFRICAN AMERICAN > 60
[2018-11-25 16:19] LABS: BENZODIAZEPINES, UR POSITIVE (NEGATIVE); PHENCYCLIDINE, UR POSITIVE (NEGATIVE)
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
[2018-11-26] MEDS: Multiple Vitamins Tab PO SCH (11:23)
[2018-11-27] MEDS: Multiple Vitamins Tab PO SCH (10:51)
--- NOTE | 2018-11-27 13:56 | PCM.PYCHPN ---
Psychiatric Progress Note - Psychiatric Progress Note Patient seen today, length of contact: 16 min Patient Chief Complaint: I have pain all over, suffering so much" Problems Identified/Issues Discussed: The pt is seen, chart reviewed, case discussed with staff. The pt is compliant with medications and reports no side-effects. Symptoms are improving but needs more time to stabilize. Pt attends groups and activities. Support given, psycho-education provided. After care discussed. Medication Change: Yes (detox changes daily) Medical Record Reviewed: Yes Mental Status Examination - Cognitive Function Orientation: Person, Place, Situation, Time Memory: Intact Attention: Poor Concentration: Poor Association: WNL Fund of Knowledge: WNL - Mood Mood: Depressed, Anxious - Affect Affect: Constricted - Speech Speech: Appropriate - Formal Thought Process Formal Thought Process: No Impairment - Suicidal Ideation Suicidal Ideation: No - Homicidal Ideation Homicidal Ideation: No Goal/Treatment Plan - Goal/Treatment Plan Need for Continued Stay: Discharge may exacerbated symptoms, Severe functional impairment Progress Toward Problem(s) and Goals/Treatment Plan: Taper with ativan Gabapentin for augmentation Lexapro and seroquel for bipolar depression As needed medications All risks, benefits and alternatives of the meds discussed, and the pt agreed and understood. Attend groups and activities Supportive therapy and psychoeducation [place] for abstinence CBT for relapse prevention Encourage MAT Refer to rehab or IOP, and self-help groups Teach healthy lifestyle methods, i.e. diet, exercise, meditation Smoking cessation with CA Nicotine patch if needed Estimated Date of D/C: 11/30/18
[2018-11-27] MEDS ORDERED: Vitamins A & D Oint UD Foilpak TOP PRN (17:04)
[2018-11-28] MEDS: Multiple Vitamins Tab PO SCH (10:28)
--- NOTE | 2018-11-28 13:46 | PCM.PYCHPN ---
Psychiatric Progress Note - Psychiatric Progress Note Patient seen today, length of contact: 15 min Patient Chief Complaint: "Tired" Problems Identified/Issues Discussed: The pt is seen, chart reviewed, case discussed with staff. Support and psychoeducation given, CBT and NV used briefly No new symptoms reported, improving slowly and needs more time No SEs from medications, risks discussed. After care discussed Medication Change: Yes (detox changes daily) Medical Record Reviewed: Yes Mental Status Examination - Cognitive Function Orientation: Person, Place, Situation, Time Memory: Intact Attention: Poor Concentration: Poor Association: WNL Fund of Knowledge: WNL - Mood Mood: Depressed, Anxious - Affect Affect: Constricted - Speech Speech: Appropriate - Formal Thought Process Formal Thought Process: No Impairment - Suicidal Ideation Suicidal Ideation: No - Homicidal Ideation Homicidal Ideation: No Goal/Treatment Plan - Goal/Treatment Plan Need for Continued Stay: Discharge may exacerbated symptoms, Severe functional impairment Progress Toward Problem(s) and Goals/Treatment Plan: Taper with ativan Gabapentin for augmentation Lexapro and seroquel for bipolar depression As needed medications All risks, benefits and alternatives of the meds discussed, and the pt agreed and understood. Attend groups and activities Supportive therapy and psychoeducation NV for abstinence CBT for relapse prevention Encourage MAT Refer to rehab or IOP, and self-help groups Teach healthy lifestyle methods, i.e. diet, exercise, meditation Smoking cessation with NV Nicotine patch if needed Estimated Date of D/C: 11/30/18
[2018-11-29] MEDS: Multiple Vitamins Tab PO SCH (10:23)
--- NOTE | 2018-11-29 11:52 | PCM.PYCHPN ---
Psychiatric Progress Note - Psychiatric Progress Note Patient seen today, length of contact: 18 min Patient Chief Complaint: I still feel lousy" Problems Identified/Issues Discussed: The pt is seen, chart reviewed, case discussed with staff. Patient states that she slept better last night but is coming down with a cold and would like some medicine. Support and psychoeducation given, CBT and [place] used briefly No new symptoms reported, improving slowly and needs more time No SEs from medications, risks discussed. After care discussed - unmotivated and she belittles treatment overall Entitled and irate easily. Medication Change: Yes (detox changes daily) Medical Record Reviewed: Yes Mental Status Examination - Cognitive Function Orientation: Person, Place, Situation, Time Memory: Intact Attention: Poor Concentration: Poor Association: WNL Fund of Knowledge: WNL - Mood Mood: Depressed, Anxious - Affect Affect: Constricted - Speech Speech: Soft - Formal Thought Process Formal Thought Process: No Impairment - Suicidal Ideation Suicidal Ideation: No - Homicidal Ideation Homicidal Ideation: No Goal/Treatment Plan - Goal/Treatment Plan Need for Continued Stay: Discharge may exacerbated symptoms, Severe functional impairment Progress Toward Problem(s) and Goals/Treatment Plan: Taper with ativan conitinues Robitussin and cepacol for cold sx Flexeril for muscle spasms Gabapentin for augmentation Lexapro and seroquel for bipolar depression As needed medications All risks, benefits and alternatives of the meds discussed, and the pt agreed and understood. Attend groups and activities Supportive therapy and psychoeducation [place] for abstinence CBT for relapse prevention Encourage MAT Refer to rehab or IOP, and self-help groups Teach healthy lifestyle methods, i.e. diet, exercise, meditation Smoking cessation with UT Nicotine patch if needed Estimated Date of D/C: 11/30/18 - Smoking Cessation Smoking Cessation Initiated: Yes
[2018-11-29] MEDS ORDERED: Benzocaine/Menthol (Cepacol) Lozenge MT PRN (11:59)
[2018-11-29] MEDS ORDERED: guaiFENesin 200 mg/10 ml Syrup UD PO PRN (12:00)
[2018-11-29] MEDS: Oxymetazoline 0.05% Nasal Spray (30 ml) NS SCH (18:21)
[2018-11-29] MEDS ORDERED: Albuterol HFA 90 mcg/actuation (8 g) INH PRN (18:24)
[2018-11-29 18:55] VITALS: O2SAT 96
[2018-11-30] MEDS: Oxymetazoline 0.05% Nasal Spray (30 ml) NS SCH (06:56)
[2018-11-30 08:51] VITALS: BP 114/75; PULSE 74; RESP 19; TEMP 97.5
[2018-11-30] MEDS: Multiple Vitamins Tab PO SCH (09:44)
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
== END 2018-11-30 13:00 | disposition home or self-care (01) | DRG 747 ==
LOC: C.ER 14:12 → C.7D 17:29
PROVIDERS: ADMIT Psychiatry & Neurology Psychiatry; ATTEND Psychiatry & Neurology Psychiatry
PROC: HZ2ZZZZ Detoxification Services for Substance Abuse Treatment (ICD-10-PCS; principal; 2018-11-30)
PROC: HZ59ZZZ Individual Psychotherapy for Substance Abuse Treatment, Supportive (ICD-10-PCS; 2018-11-30)
PROC: GZ3ZZZZ Medication Management (ICD-10-PCS; 2018-11-30)
PROC: HZ80ZZZ Medication Management for Substance Abuse Treatment, Nicotine Replacement (ICD-10-PCS; 2018-11-30)
PROC: HZ59ZZZ Individual Psychotherapy for Substance Abuse Treatment, Supportive (ICD-10-PCS; 2018-11-30)
PROC: HZ80ZZZ Medication Management for Substance Abuse Treatment, Nicotine Replacement (ICD-10-PCS; 2018-11-30)
DX: F13.230 Sedative, hypnotic or anxiolytic dependence with withdrawal, uncomplicated (principal); F10.20 Alcohol dependence, uncomplicated; F31.30 Bipolar disorder, current episode depressed, mild or moderate severity, unspecified; F14.10 Cocaine abuse, uncomplicated; F12.10 Cannabis abuse, uncomplicated; F16.10 Hallucinogen abuse, uncomplicated; F43.10 Post-traumatic stress disorder, unspecified; F17.210 Nicotine dependence, cigarettes, uncomplicated; R56.9 Unspecified convulsions; I10 Essential (primary) hypertension; J45.909 Unspecified asthma, uncomplicated; Y90.0 Blood alcohol level of less than 20 mg/100 ml; Z91.14 Patient's other noncompliance with medication regimen; Z91.5 Personal history of self-harm